=== PATIENT | male | born 1960 ===

== ENCOUNTER 2018-02-10 10:46 | Emergency (ER) | payer BC ==
[2018-02-10 11:29] VITALS: BP 136/81
--- NOTE | 2018-02-10 11:42 | UC ---
Skin Complaint HPI - HPI Summary HPI Summary: Pt present to with concern for recurrent cellulitis RLE. Pt has been on abx ( Clinda, Bactrim, Doxy) 3 times for RLE cellulitis since the summer. Last course completed approx 2 weeks ago. Pt states yesterday felt leg getting warm, mild nausea. Pt elevated and applied heat. Pt unable to see PCP so came here. Pt has had US neg for DVT. Pt was referred to a vascular surgeon by PCP - awaiting further studies, but surgeon reports low concern for vasculsar dx No open wounds. no pain. No recent trauma. no hardware. Pt with remote injury to right mendez. No fevers, not immunocompromised. no know MRSA. Pt has not seen ID. No pain Pt's medications reviewed this visit - History of Current Complaint Chief Complaint: UCLowerExtremity Time Seen by Provider: 02/10/18 11:30 Stated Complaint: RT LEG COMPLAINT, FEVER,NAUSEA Hx Obtained From: Patient Onset/Duration: Gradual Onset Skin Exposure Onset/Duration: Days Ago Pain Intensity: 2 - Allergy/Home Medications Allergies/Adverse Reactions: Allergies Allergy/AdvReac Type Severity Reaction Status Date / Time Sulfa (Sulfonamide Allergy Hives Verified 02/10/18 11:19 Antibiotics) Home Medications: Home Medications Bp Med- Bipopasol? 1 tab PO DAILY 02/10/18 [History] Pantoprazole Sodium 20 mg PO DAILY 02/10/18 [History Confirmed 02/10/18] Simvastatin TAB(NF) [Zocor(NF)] 20 mg PO DAILY 02/10/18 [History Confirmed 02/10] Review of Systems All Other Systems Reviewed And Are Negative: Yes Constitutional: Positive: Fatigue Skin: Positive: Other - RLE erythema Gastrointestinal: Positive: Nausea PMH/Surg Hx/FS Hx/Imm Hx Previously Healthy: Yes Endocrine History: Dyslipidemia - Surgical History Surgical History: None - Family History Known Family History: Positive: Non-Contributory - Social History Occupation: Employed Full-time Lives: With Family Alcohol Use: Occasionally Substance Use Type: None Smoking Status (MU): Current Some Day Smoker Type: Cigars Amount Used/How Often: occasional Physical Exam - Summary Physical Exam Summary: Vital Signs Reviewed: Yes A+Ox3, no distress Eyes: Conjunctiva Clear, SHWETA. EOM intact and full ENT: Hearing grossly normal TM x 2 clear, mmoist, uvula midline, no exudate, no erythema Neck: Positive: Supple Respiratory: Positive: No respiratory distress, No accessory muscle use + CTA throughout no w/r Cardiovascular: RRR nl s1, s2 no m/r CBT <2 sec foot warm abd soft + BS nt/nd no guarding, no distension Musculoskeletal Exam: MARTINEZ x 4 without difficulty Strength Intact, ROM Intact, calf soft non tender Neurological: Positive: Alert, + sensation throughout Psychological: Positive: Normal Response To Family Skin: Positive: no rash, no ecchymosis, no wounds pt with erythema RLE calf, flat and warm, mendez no crepitus Triage Information Reviewed: Yes Vital Signs: Initial Vital Signs Temp 97.6 F 02/10/18 11:22 Pulse 59 02/10/18 11:22 Resp 18 02/10/18 11:22 BP 136/81 02/10/18 11:22 Pulse Ox 99 02/10/18 11:22 Course/Dx - Course Course Of Treatment: pt presents with recurrent cellulitis right LE Pt with 24 hours RLE erythema, warmth RLE no crepitus, no indurated. Good CSM distal no wounds not immunocompromised. will Rx doxy x 14 days. recommend pt f/u with ID. concern for infection incomplete resolution. return precautions. pt comfortable and in agreement with plan - Diagnoses Provider Diagnoses: RLE cellulitis Discharge - Sign-Out/Discharge Documenting (check all that apply): Patient Departure All imaging exams completed and their final reports reviewed: No Studies - Discharge Plan Condition: Stable Disposition: HOME Prescriptions: Clindamycin Cap(NF) [Clindamycin Cap 300 mg Cap(NF)] 300 mg PO TID #21 cap DOXYcycline CAP(*) [DOXYcycline 100MG CAP(*)] 100 mg PO BID #28 cap Patient Education Materials: Cellulitis (ED) Referrals: Cuong IBARRA,Dimitris Caicedo [Medical Doctor] - 5 Days Fabian Rodgers MD [Primary Care Provider] - Additional Instructions: - Take antibiotics as prescribed until gone - elevate your leg to help with swelling and pain - okay to take tylenol or ibuoprofen as needed for fever and discomfort - if you have increased reddness, red streaking, pain, uncontrolled fevers or any other concerns it is recommended you go to the emergency department - as discussed - it is recommended you follow-up for consultation with a infectious disease specialist. You have been given contact information for the specialists affiliated with [facility] - Billing Disposition and Condition Condition: STABLE Disposition: Home
== END 2018-02-10 12:09 | disposition home or self-care (01) ==
LOC: UCCORT 10:46
DX: L03.115 Cellulitis of right lower limb (principal); R53.83 Other fatigue; R11.0 Nausea; E78.5 Hyperlipidemia, unspecified; Z88.2 Allergy status to sulfonamides; Z72.0 Tobacco use
CPT/HCPCS: 99202; G0463